=== PATIENT | male | born 1970 | race Caucasian/White ===

== ENCOUNTER 2017-08-16 23:51 | Emergency (ER) | payer MEDICAID, OTHER ==
[2017-08-16 23:56] VITALS: BP 131/75
--- NOTE | 2017-08-17 01:56 | ER Document Report ---
ED Respiratory Problem - General Chief Complaint: Nonproductive Cough Stated Complaint: COUGH Time Seen by Provider: 08/17/17 01:00 Mode of Arrival: Ambulatory Information source: Patient TRAVEL OUTSIDE OF THE [place] IN LAST 30 DAYS: No - HPI Patient complains to provider of: Cough Notes: Patient is here with complaints of cough. He states the cough has been going on for the last few weeks. He works in a freezer at work, states the cough seems to be much worse when he is exposed to the cold air. He denies any fever. He denies any production to his cough. He denies any chest pain or shortness of breath. No abdominal pain. No nausea, vomiting, diarrhea. No numbness, [place], weakness. No rash. He also complains of some left knee pain. He states his left knee pain is been present for the last several months. He has seen his primary care doctor for this but no one has x-rayed it. He denies any falls or injuries. No redness or swelling. No numbness, tingling, weakness. No calf pain or calf swelling. He denies any recent long trips or surgeries. The patient does take lisinopril, but states that he has been on this medication for several years. He denies any other complaints at this time. - Related Data Allergies/Adverse Reactions: No Known Allergies Allergy (Verified 08/16/17 23:51) Past Medical History - Social History Smoking Status: Never Smoker Family History: Reviewed & Not Pertinent - Past Medical History Cardiac Medical History: Reports: Hx Hypercholesterolemia - Immunizations Hx Diphtheria, Pertussis, Tetanus Vaccination: Yes Review of Systems - Review of Systems -: Yes All other systems reviewed and negative Physical Exam - Vital signs Vitals: Temp Pulse Resp BP Pulse Ox 97.5 F 66 16 131/75 H 97 08/16/17 23:54 08/16/17 23:54 08/16/17 23:54 08/16/17 23:54 08/16/17 23:54 - Notes Notes: GENERAL: alert, cooperative, nontoxic, no distress. HEAD: normocephalic, atraumatic EYES: conjunctiva pink without discharge, no external redness or swelling. EARS: no external swelling, no external redness, no mastoid redness, swelling, tenderness. Ear canals are clear without swelling or drainage. TMs pearly han , no redness, no bulging, normal landmarks, no perforation. NOSE: atraumatic, no external swelling. clear rhinorrhea noted. MOUTH/THROAT: mucous membranes moist and pink, posterior pharynx without erythema, swelling, exudate. No trismus or drooling. NECK: soft, supple, full range of motion, no meningismus. CHEST: no distress, lungs clear and equal throughout. No wheezing, rales, rhonchi. CARDIAC: regular rate and rhythm, no murmur, normal capillary refill, normal pulses. No peripheral edema noted. BACK: full range of motion, no CVA tenderness. EXTREMITIES: full range of motion of all extremities. No redness, no swelling. Mild tenderness to palpation of the left anterior knee. Full range of motion. No ligament instability. Normal straight leg raise. No calf pain or swelling. Normal pulse and sensation distally. Hip exam and ankle exam are normal. Compartments are soft. NEURO: alert and oriented A&O3, no focal deficits, full range of motion of all extremities. PYSCH: appropriate mood, affect. Patient is cooperative. SKIN: pink, warm, dry, no rash. Course - Re-evaluation Re-evalutation: 08/17/17 02:15 Patient is nontoxic appearing with stable vitals. He has had a cough for over the last few weeks. The cough seems to be worse when he is in the cold air at work. No fever. He has not been coughing anything up. Chest x-ray shows no acute abnormality per the radiologist. The patient is on lisinopril, it is possible that his chronic cough could be secondary to an ANN MARIE inhibitor. I instructed him to discuss this with his family doctor to see if they would like to switch him to a different antihypertensive to see if this helps with his cough. X-ray of the knee shows no acute findings with some suprapatellar swelling consistent possibly with bursitis. Patient does complain of chronic pain in this knee. I will discharge him home on some Naprosyn with a referral to orthopedics for his chronic knee pain. He is instructed to follow-up with his physicians as directed. Follow-up sooner for worsening pain, fever, swelling, numbness, tingling, weakness, chest pain or shortness of breath, or for any further concerns. The patient is noted to have elevated blood pressure during today's emergency department visit. The patient was informed of this finding. The patient was instructed that this may be related to pre-hypertension and requires further evaluation with a primary care provider. The patient has no hypertensive symptoms at this time. The patient's emergency department workup and current diagnosis were explained to the patient and or family. Follow-up instructions were provided. Medications if prescribed were discussed. Instructions for when to return to the emergency department including specific worrisome symptoms were discussed with the patient and/or family. - Vital Signs Vital signs: Temp Pulse Resp BP Pulse Ox 97.5 F 66 16 131/75 H 97 08/16/17 23:54 08/16/17 23:54 08/16/17 23:54 08/16/17 23:54 08/16/17 23:54 - Diagnostic Test Radiology reviewed: Image reviewed, Reports reviewed - X-ray of the chest shows no acute abnormality. X-ray of the knee shows possible bursitis with no acute findings. Discharge - Discharge Clinical Impression: Chronic cough Bursitis of left knee Qualifiers: Knee bursitis location: infrapatellar bursitis Qualified Code(s): M70.52 - Other bursitis of knee, left knee Condition: Stable Disposition: HOME, SELF-CARE Instructions: Bursitis ([facility]), Cough Suppressant & Expectorant Medications Additional Instructions: Take medications as prescribed. Follow-up with your primary care doctor if her cough persists and discussed with them the possibility of this being related to your lisinopril. Follow-up with orthopedics related to your chronic knee pain. Follow-up sooner for increasing knee pain, redness, swelling, numbness, tingling, weakness. Or for chest pain, shortness of breath or any further concerns. Your blood pressure was elevated during today's visit. Have this rechecked with your doctor. Prescriptions: Benzonatate [Tessalon Perle 100 mg Capsule] 100 mg PO Q8HP PRN #20 cap PRN Reason: Naproxen [Naprosyn] 500 mg PO BID #20 tablet Forms: Elevated Blood Pressure, Return to Work Referrals: CHRISTIN BONILLA DO [Primary Care Provider] - Follow up as needed WOODY CORDON MD [ACTIVE STAFF] - Follow up as needed
--- NOTE | 2017-08-17 02:03 | RADIOLOGY REPORT (SQ) ---
EXAM DESCRIPTION: CHEST 2 VIEWS CLINICAL HISTORY: cough COMPARISON: None. FINDINGS: Frontal and lateral views of the chest. The cardiomediastinal silhouette has normal size and contour. No consolidation, pneumothorax, or pleural effusion. No displaced rib fractures identified. Upper abdominal soft tissues are unremarkable. IMPRESSION: 1. No acute pulmonary process identified.
--- NOTE | 2017-08-17 02:06 | RADIOLOGY REPORT (SQ) ---
EXAM DESCRIPTION: KNEE LEFT 4 VIEW CLINICAL HISTORY: chronic pain COMPARISON: None. FINDINGS: 4 views of the left knee. No acute fracture or dislocation. Normal osseous mineralization. No definite joint effusion. Mild thickening of the soft tissues inferior to the patella. IMPRESSION: 1. No acute fracture or dislocation. 2. Mild thickening of the soft tissues inferior to the patella. This could be seen with infrapatellar bursitis
== END 2017-08-17 02:25 | disposition home or self-care (01) ==
LOC: ER 23:51
DX: R05 Cough (principal); M70.52 Other bursitis of knee, left knee; M25.562 Pain in left knee; G89.29 Other chronic pain; J34.89 Other specified disorders of nose and nasal sinuses; Z79.899 Other long term (current) drug therapy; I10 Essential (primary) hypertension
CPT/HCPCS: 71046; 99283

== ENCOUNTER → 2020-02-09 | Outpatient (CLI) | payer BC ==
[2020-02-09 09:16] LABS: ABSOLUTE BASOPHILS # (AUTO) 0.1 10^3/uL (0.0-0.2); ABSOLUTE EOSINOPHILS # (AUTO) 0.3 10^3/uL (0.0-0.6); ABSOLUTE LYMPHOCYTES (AUTO) 1.8 10^3/uL (0.5-4.7); ABSOLUTE MONOCYTES (AUTO) 0.6 10^3/uL (0.1-1.4); ABSOLUTE NEUT (AUTO) 3.5 10^3/uL (1.7-8.2); BASOPHILS % (AUTO) 1.1 % (0-2); EOSINOPHILS % (AUTO) 5.1 % (0-6); HEMATOCRIT 44.1 % (37.9-51.0); HEMOGLOBIN 15.6 g/dL (13.5-17.0); LYMPHOCYTES % (AUTO) 28.9 % (13-45); MEAN CORPUSCULAR HEMOGLOBIN 30.5 pg (27.0-33.4); MEAN CORPUSCULAR HGB CONC 35.3 g/dL (32.0-36.0); MEAN CORPUSCULAR VOLUME 86 fl (80-97); MONOCYTES % (AUTO) 8.9 % (3-13); PLATELET COUNT 183 10^3/uL (150-450); RED BLOOD COUNT 5.11 10^6/uL (4.35-5.55); RED CELL DISTRIBUTION WIDTH 13.6 % (11.5-14.0); TOTAL CELLS COUNTED % (AUTO) 100 %; WHITE BLOOD COUNT 6.3 10^3/uL (4.0-10.5)
[2020-02-09 09:35] LABS: ALBUMIN 4.3 g/dL (3.5-5.0); ALKALINE PHOSPHATASE 97 U/L (38-126); ANION GAP 10 (5-19); ASPARTATE AMINO TRANSFERASE 33 U/L (17-59); BILIRUBIN,DIRECT 0.3 mg/dL (0.0-0.4); BILIRUBIN,TOTAL 0.8 mg/dL (0.2-1.3); BLOOD UREA NITROGEN 23 mg/dL (7-20); CALCIUM 9.2 mg/dL (8.4-10.2); CARBON DIOXIDE 24 mmol/L (22-30); CHLORIDE 107 mmol/L (98-107); CHOLESTEROL 161.47 mg/dL (0-200); GLUCOSE 96 mg/dL (75-110); POTASSIUM 4.4 mmol/L (3.6-5.0); TOTAL PROTEIN 7.4 g/dL (6.3-8.2); TRIGLYCERIDES 145 mg/dL (<150)
[2020-02-09 09:48] LABS: DIRECT LDL 98 mg/dL (<100)
[2020-02-09 09:55] LABS: FREE T3 4.01 pg/mL (2.77-5.27); FREE T4 (FREE THYROXINE) 0.77 ng/dL (0.78-2.19)
[2020-02-09 10:09] LABS: THYROID STIMULATING HORMONE 2.21 uIU/mL (0.47-4.68)
== END ==
LOC: OD 08:12
PROVIDERS: ATTEND Family Medicine
DX: Z12.11 Encounter for screening for malignant neoplasm of colon (principal); E03.9 Hypothyroidism, unspecified; E78.2 Mixed hyperlipidemia; I10 Essential (primary) hypertension
CPT/HCPCS: 36415; 80053; 80061; 84439; 84443; 84481; 85025